=== PATIENT | male | born 1990 | race African-American/Black ===

== ENCOUNTER 2022-06-30 11:29 | Emergency (ER) | payer OTHER, BC | END 2022-06-30 13:27 | disposition home or self-care (01) | LOC: ERS 11:29 | DX: M25.562 Pain in left knee (principal); M25.561 Pain in right knee; I10 Essential (primary) hypertension; V89.2XXA Person injured in unspecified motor-vehicle accident, traffic, initial encounter | CPT/HCPCS: 70450; 72125 ==